=== PATIENT | male | born 1970 | race African-American/Black ===

== ENCOUNTER 2020-04-01 10:22 | Inpatient (IN) | payer OTHER ==
[2020-04-01 12:35] VITALS: BMI 22.8
--- NOTE | 2020-04-01 12:39 | BHS.RME ---
Substance Use & Tx History - Substance Use History Alcohol Substance amount: 2 6 packs, 1 pint Frequency of use: Daily Substance route: Oral Date of Last Use: 03/31/20 Cocaine-Crack Substance amount: 2 grams Frequency of use: Daily Substance route: Smoking Date of Last Use: 03/31/20 - Last Treatment Date of last treatment: 1st time Physical/Psych/Mental Status - Behavior General Behavior: Increased activity (restlessness, agitation) Eye Contact: Normal Other Behaviors: Mannerisms - Cooperativeness Cooperativeness: Cooperative - Thinking Thought Processes: Tight - Physical Health Problems Is patient presently having any pain?: No Does patient presently have any injuries (include location): No Does patient currently have a fever: No CIWA Nausea/Vomitin Muscle Tremors: 2 Anxiety: 2 Agitation: 2 Paroxysmal Sweats: 2 Orientation: 0-Oriented Tacttile Disturbances: 1-Very Mild Itch/Numbness Auditory Disturbances: 1-Very Mild Visual Disturbances: 1-Very Mild Sensitivity Headache: 1-Very Mild CIWA-Ar Total Score: 14
--- NOTE | 2020-04-01 12:58 | HP ---
CIWA Score Nausea/Vomitin Muscle Tremors: 2 Anxiety: 2 Agitation: 2 Paroxysmal Sweats: 2 Orientation: 0-Oriented Tacttile Disturbances: 1-Very Mild Itch/Numbness Auditory Disturbances: 1-Very Mild Visual Disturbances: 1-Very Mild Sensitivity Headache: 1-Very Mild CIWA-Ar Total Score: 14 - Admission Criteria [facility]ASAS Guidelines: Admission for Medically Managed Detox: Requires at least one of the followin. CIWA greater than 12 2. Seizures within the past 24 hours 3. Delirium tremens within the past 24 hours 4. Hallucinations within the past 24 hours 5. Acute intervention needed for co occurring medical disorder 6. Acute intervention needed for co occurring psychiatric disorder 7. Severe withdrawal that cannot be handled at a lower level of care (continued vomiting, continued diarrhea, abnormal vital signs) requiring intravenous medication and/or fluids 8. Patient presents the following: CIWA greater than 12 Admission Criteria Met: Admission criteria met Admission ROS [facility] Chief Complaint: I am here to detox from alcohol Allergies/Adverse Reactions: Allergies Allergy/AdvReac Type Severity Reaction Status Date / Time No Known Allergies Allergy Verified 04/01/20 12:46 History of Present Illness: Patient is a 49 years old man who presents for alcohol detox, his first time in detox. He denies seizures or blackouts. Exam Limitations: No Limitations - Ebola screening Have you traveled outside of the country in the last 21 days: No Have you had contact with anyone from an Ebola affected area: No Have you been sick,other than usual withdrawal symptoms: No Do you have a fever: No - Review of Systems Constitutional: Chills, Changes in sleep, Weight Stable EENT: reports: No Symptoms Reported, Other (partial dentures) Respiratory: reports: No Symptoms reported Cardiac: reports: No Symptoms Reported GI: reports: Nausea, Abdominal cramping : reports: No Symptoms Reported Musculoskeletal: reports: Muscle Pain, Muscle Weakness Integumentary: reports: No Symptoms Reported Neuro: reports: Headache, Numbness, Tremors Endocrine: reports: No Symptoms Reported Hematology: reports: Anemia Psychiatric: reports: No Sypmtoms Reported Other Systems: Reviewed and Negative Patient History - Patient Medical History Hx Anemia: Yes Hx Asthma: No Hx Chronic Obstructive Pulmonary Disease (COPD): No Hx Cancer: No Hx Cardiac Disorders: No Hx Congestive Heart Failure: No Hx Hypertension: No Hx Hypercholesterolemia: No Hx Pacemaker: No HX Cerebrovascular Accident: No Hx Seizures: No Hx Dementia: No Hx Diabetes: No Hx Gastrointestinal Disorders: No Hx Liver Disease: No Hx Genitourinary Disorders: No Hx Sexually Transmitted Disorders: No Hx Renal Disease (ESRD): No Hx Thyroid Disease: No Hx Human Immunodeficiency Virus (HIV): No Hx Hepatitis C: No Hx Depression: No Hx Suicide Attempt: No Hx Bipolar Disorder: No Hx Schizophrenia: No - Patient Surgical History Hx Neurologic Surgery: No Hx Cataract Extraction: No Hx Cardiac Surgery: No Hx Lung Surgery: No Hx Breast Surgery: No Hx Breast Biopsy: No Hx Abdominal Surgery: Yes (hernia repair as a child) Hx Appendectomy: No Hx Cholecystectomy: No Hx Genitourinary Surgery: No Hx Section: No Hx Orthopedic Surgery: No Hx Hysterectomy: No Anesthesia Reaction: No - PPD History Previous Implant?: Yes Documented Results: Negative w/o proof Implanted On Prior R Admission?: No PPD to be Administered?: Yes - Smoking Cessation Smoking history: Current every day smoker Have you smoked in the past 12 months: Yes Aproximately how many cigarettes per day: 20 Hx Chewing Tobacco Use: No Initiated information on smoking cessation: Yes 'Breaking Loose' booklet given: 04/01/20 - Substances abused Alcohol Other (specify): beer and vodka Amount used: 2-6 packs,1 pint Age of first use: 14 Date of last use: 03/31/20 Cocaine Substance route: Smoking Frequency: Daily Amount used: 2 grams Age of first use: 21 Date of last use: 03/31/20 Admission Physical Exam BHS - Vital Signs Vital Signs: Vital Signs - 24 hr 04/01/20 12:33 Temperature 97.6 F Pulse Rate 71 Respiratory 18 Rate Blood Pressure 143/89 - Physical General Appearance: Yes: No Apparent Distress, Tremorous, Anxious HEENTM: Yes: Hearing grossly Normal, Normal ENT Inspection, Normocephalic, Normal Voice Respiratory: Yes: Chest Non-Tender, Lungs Clear, No Respiratory Distress, No Accessory Muscle Use Neck: Yes: No masses,lesions,Nodules, Supple Breast: Yes: Breast Exam Deferred Cardiology: Yes: Regular Rhythm, Regular Rate, S1, S2 Abdominal: Yes: Normal Bowel Sounds, Non Tender Genitourinary: Yes: Within Normal Limits Back: Yes: Normal Inspection Musculoskeletal: Yes: full range of Motion, Gait Steady, Pelvis Stable, Muscle Pain, Muscle weakness Extremities: Yes: Normal Range of Motion, Non-Tender, Tremors 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, Fully Oriented, Alert, Normal Mood/Affect, Normal Response Integumentary: Yes: Normal Color, Dry, Moist (palms) Lymphatic: Yes: Within Normal Limits - Diagnostic (1) Alcohol dependence with uncomplicated withdrawal Current Visit: Yes Status: Acute (2) Nicotine dependence with withdrawal Current Visit: Yes Status: Acute Qualifiers: Nicotine product type: cigarettes Qualified Code(s): F17.213 - Nicotine dependence, cigarettes, with withdrawal (3) Cocaine abuse Current Visit: Yes Status: Acute Cleared for Admission S - Detox or Rehab [facility] Level of Care: Medically Managed Detox Regimen/Protocol: Librium Claeared for Rehab Admission: No Breathalyzer - Breathalyzer Breathalyzer: 0 Urine Drug Screen - Test Device Lot number: [id number] Expiration date: 10/05/76 - Control Is test valid?: Yes - Results Drug screen NEGATIVE: No Urine drug screen results: [facility]OLAN-Cocaine Inpatient Rehab Admission - Rehab Decision to Admit Inpatient rehab admission?: No
[2020-04-01] MEDS ORDERED: MAGNESIUM CITRATE 300 ML BOTTLE PO PRN (13:04)
[2020-04-01] MEDS ORDERED: hydrOXYzine PAMOATE 25 MG CAPSULE (FP) PO PRN (13:04)
[2020-04-01] MEDS ORDERED: ACETAMINOPHEN 325 MG TABLET (FP) PO PRN ×2 (13:04)
[2020-04-01] MEDS ORDERED: ONDANSETRON *ODT* 4 MG TABLET SL PRN (13:04)
[2020-04-01] MEDS ORDERED: BISMUTH SUBSALICYLATE 524 MG/30 ML UD PO PRN (13:04)
[2020-04-01] MEDS ORDERED: IBUPROFEN 400 MG TABLET (FP) PO PRN (13:04)
[2020-04-01] MEDS ORDERED: MENTHOL/PHENOL 1 EACH UD MM PRN (13:04)
[2020-04-01] MEDS ORDERED: MAGNESIUM HYDROX 2400MG/30ML ORAL SUSPENSION 30 ML CUP PO PRN (13:04)
[2020-04-01] MEDS ORDERED: MAG HYDROX/AL HYDROX/SIMETH 30 ML UNIT-DOSE CUP PO PRN (13:04)
[2020-04-01] MEDS ORDERED: chlordiazePOXIDE HCL 25 MG CAPSULE PO PRN (13:04)
[2020-04-01] MEDS ORDERED: METHOCARBAMOL 500 MG TABLET PO PRN (13:04)
[2020-04-01] MEDS ORDERED: NICOTINE POLACRILEX 2 MG GUM BUC PRN (13:04)
[2020-04-01] MEDS ORDERED: chlordiazePOXIDE HCL 25 MG CAPSULE PO ONE (13:45)
[2020-04-01] MEDS: chlordiazePOXIDE HCL 25 MG CAPSULE PO SCH ×2 (17:46→22:23)
[2020-04-01] MEDS: THIAMINE HCL 100 MG TABLET (FP) PO SCH (22:23)
[2020-04-01] MEDS: MELATONIN 5 MG TABLETS PO SCH (22:23)
[2020-04-02] MEDS: chlordiazePOXIDE HCL 25 MG CAPSULE PO SCH ×4 (05:16→22:26)
[2020-04-02] MEDS ORDERED: chlordiazePOXIDE HCL 25 MG CAPSULE ONE (09:35)
--- NOTE | 2020-04-02 10:42 | PN ---
S CIWA - CIWA Score Nausea/Vomitin-Mild Nausea/No Vomiting Muscle Tremors: 1-None Visible, but [place] Anxiety: 3 Agitation: 1-Slight > Activity Paroxysmal Sweats: No Perspiration Orientation: 1-Uncertain about Date (date of week) Tacttile Disturbances: 0-None Auditory Disturbances: 0-None Visual Disturbances: 1-Very Mild Sensitivity Headache: 1-Very Mild CIWA-Ar Total Score: 9 BHS Progress Note (SOAP) Subjective: 49 years old male was admitted on 04/01/20 for alcohol withdrawal sx management treating with librium detox regiment feels tired ate breakfast in room tolerated food well bmi 22.8 ensure 120 ml po tid with meals Objective: 04/02/20 10:42 Vital Signs - 24 hr 04/01/20 04/01/20 04/01/20 12:33 13:31 16:35 Temperature 97.6 F 96.8 F L 97.8 F Pulse Rate 71 74 74 Respiratory 18 18 16 Rate Blood Pressure 143/89 133/88 121/77 O2 Sat by Pulse 99 Oximetry (%) 04/01/20 04/02/20 04/02/20 21:00 06:33 09:50 Temperature 97.3 F L 97.1 F L 97 F L Pulse Rate 76 65 68 Respiratory 18 18 16 Rate Blood Pressure 115/71 135/85 129/90 O2 Sat by Pulse 99 97 Oximetry (%) 04/02/20 10:43 lab pending Assessment: 04/02/20 10:44 alcohol withdrawal Plan: librium regiment
[2020-04-02 10:49] LABS: HEMATOCRIT 43.4 % (35.4-49); HEMOGLOBIN 14.6 GM/dL (11.7-16.9); MCHC 33.6 g/dl (32.0-35.9); MEAN PLT VOLUME 9.6 fl (7.5-11.1); PLATELET COUNT 234 K/MM3 (134-434); RBC 4.57 M/mm3 (4.00-5.60); RDW 14.4 % (11.9-15.9); WHITE BLOOD COUNT 6.3 K/mm3 (4.0-10.0)
[2020-04-02 11:06] LABS: ALBUMIN 2.9 g/dl (3.4-5.0); BILIRUBIN,TOTAL 0.4 mg/dL (0.2-1); BLOOD UREA NITROGEN 9.5 mg/dL (7-18); CALCIUM 8.5 mg/dL (8.5-10.1); CREATININE 0.9 mg/dL (0.55-1.3); POTASSIUM 3.5 mmol/L (3.5-5.1)
[2020-04-02 11:07] LABS: TOT PROT 6.2 g/dl (6.4-8.2)
[2020-04-02] MEDS: NICOTINE 7 MG/24 HOURS TOPICAL PATCH TD SCH (11:53)
[2020-04-02] MEDS: PRENATAL VITAMINS W/ FOLIC ACID TABLET (FP) PO SCH (11:53)
[2020-04-02] MEDS: MELATONIN 5 MG TABLETS PO SCH (22:26)
[2020-04-02] MEDS: THIAMINE HCL 100 MG TABLET (FP) PO SCH (22:26)
[2020-04-03] MEDS: chlordiazePOXIDE HCL 25 MG CAPSULE PO SCH ×4 (05:30→23:48)
[2020-04-03] MEDS: PRENATAL VITAMINS W/ FOLIC ACID TABLET (FP) PO SCH (10:13)
[2020-04-03] MEDS: NICOTINE 7 MG/24 HOURS TOPICAL PATCH TD SCH (10:15)
--- NOTE | 2020-04-03 12:32 | PN ---
S CIWA - CIWA Score Nausea/Vomitin-Mild Nausea/No Vomiting Muscle Tremors: 2 Anxiety: 3 Agitation: 0-Normal Activity Paroxysmal Sweats: No Perspiration Orientation: 0-Oriented Tacttile Disturbances: 0-None Auditory Disturbances: 0-None Visual Disturbances: 0-None Headache: 0-None Present CIWA-Ar Total Score: 6 BHS Progress Note (SOAP) Subjective: 49 years old male was admitted on 04/01/20 for alcohol withdrawal sx management treating with libriium detox regiment tolerates food and ensure well encourage mr garcia to discuss aftercare with staff Objective: 04/03/20 12:36 Vital Signs - 24 hr 04/02/20 04/02/20 04/02/20 13:00 17:20 21:00 Temperature 97.3 F L 99.3 F 97.3 F L Pulse Rate 70 82 77 Respiratory 18 18 16 Rate Blood Pressure 129/76 125/79 133/90 O2 Sat by Pulse 98 98 99 Oximetry (%) 04/03/20 04/03/20 06:41 08:41 Temperature 97.2 F L 97.3 F L Pulse Rate 78 71 Respiratory 18 16 Rate Blood Pressure 133/78 136/93 O2 Sat by Pulse 98 Oximetry (%) 04/03/20 12:37 Laboratory Tests 04/01/20 04/02/20 04/02/20 13:08 07:50 07:50 WBC 6.3 RBC 4.57 Hgb 14.6 Hct 43.4 MCV 95.0 MCH 32.0 MCHC 33.6 RDW 14.4 Plt Count 234 MPV 9.6 Sodium Potassium Chloride Carbon Dioxide Anion Gap BUN Creatinine Est GFR (CKD-EPI)AfAm Est GFR (CKD-EPI)NonAf Random Glucose Calcium Total Bilirubin AST ALT Alkaline Phosphatase Total Protein Albumin Syphilis Serology Non-reactive COVID-19 (ANA) Not detected 04/02/20 07:50 WBC RBC Hgb Hct MCV MCH MCHC RDW Plt Count MPV Sodium 141 Potassium 3.5 Chloride 106 Carbon Dioxide 31 Anion Gap 4 L BUN 9.5 Creatinine 0.9 Est GFR (CKD-EPI)AfAm 116.65 Est GFR (CKD-EPI)NonAf 100.64 Random Glucose 72 L Calcium 8.5 Total Bilirubin 0.4 AST 18 ALT 17 Alkaline Phosphatase 90 Total Protein 6.2 L Albumin 2.9 L Syphilis Serology COVID-19 (ANA) lab noted Assessment: 04/03/20 12:38 alcohol withdrawal Plan: librium regiment
[2020-04-03] MEDS: MELATONIN 5 MG TABLETS PO SCH (23:48)
[2020-04-03] MEDS: THIAMINE HCL 100 MG TABLET (FP) PO SCH (23:48)
[2020-04-04] MEDS ORDERED: chlordiazePOXIDE HCL 10 MG CAPSULE PO PRN
[2020-04-04] MEDS: chlordiazePOXIDE HCL 10 MG CAPSULE PO SCH ×2 (05:44→10:32)
--- NOTE | 2020-04-04 08:57 | DS ---
[facility] Detox Discharge Summary Admission Date: 04/01/20 Discharge Date: 04/04/20 - History Present History: Alcohol Dependence Additional Comments: 49 years old male was admitted on 04/01/20 for alcohol withdrawal sx management treated with librium detox regiment mr garcia reports feeling better today insists to leave the detox today alert oriented x 3 speech clearly coherently ambulating steady gait mr garcia prefers to go home and takes care of his alcohol problem in the community by attending AA and seeks support General Appearance: Yes: No Apparent Distress, mild Tremorous, mild Anxious HEENTM: Yes: Hearing grossly Normal, Normal ENT Inspection, Normocephalic, Normal Voice Respiratory: Yes: Chest Non-Tender, Lungs Clear, No Respiratory Distress, No Accessory Muscle Use Neck: Yes: No masses,lesions,Nodules, Supple Breast: Yes: Breast Exam Deferred Cardiology: Yes: Regular Rhythm, Regular Rate, S1, S2 Abdominal: Yes: Normal Bowel Sounds, Non Tender Genitourinary: Yes: Within Normal Limits Back: Yes: Normal Inspection Musculoskeletal: Yes: full range of Motion, Gait Steady, Pelvis Stable, Muscle Pain, Muscle weakness Extremities: Yes: Normal Range of Motion, Non-Tender, Tremors 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, Fully Oriented, Alert, Normal Mood/Affect, Normal Response Integumentary: Yes: Normal Color, Dry, Lymphatic: Yes: Within Normal Limits Pertinent Past History: time for discharge 57 minutes treatment team met with mr garcia to discuss the benefits of librium completion mr garcia insists to leave the detox and prefers taking care of his alcohol problem himself - Physical Exam Results Vital Signs: Vital Signs Temperature 97.5 F L 04/04/20 06:43 Pulse Rate 90 04/04/20 06:43 Respiratory Rate 18 04/04/20 06:43 Blood Pressure 134/89 04/04/20 06:43 O2 Sat by Pulse Oximetry (%) 98 04/04/20 06:43 Pertinent Admission Physical Exam Findings: alcohol withdrawal Vital Signs - 24 hr 04/03/20 04/03/20 04/03/20 12:56 16:35 20:42 Temperature 97.7 F 97.3 F L 97.5 F L Pulse Rate 66 73 76 Respiratory 16 18 17 Rate Blood Pressure 117/75 106/67 108/64 O2 Sat by Pulse 99 98 Oximetry (%) 04/04/20 04/04/20 06:43 09:22 Temperature 97.5 F L 97.3 F L Pulse Rate 90 100 H Respiratory 18 18 Rate Blood Pressure 134/89 126/95 O2 Sat by Pulse 98 98 Oximetry (%) Laboratory Tests 04/01/20 04/02/20 04/02/20 13:08 07:50 07:50 WBC 6.3 RBC 4.57 Hgb 14.6 Hct 43.4 MCV 95.0 MCH 32.0 MCHC 33.6 RDW 14.4 Plt Count 234 MPV 9.6 Sodium Potassium Chloride Carbon Dioxide Anion Gap BUN Creatinine Est GFR (CKD-EPI)AfAm Est GFR (CKD-EPI)NonAf Random Glucose Calcium Total Bilirubin AST ALT Alkaline Phosphatase Total Protein Albumin Syphilis Serology Non-reactive COVID-19 (ANA) Not detected 04/02/20 07:50 WBC RBC Hgb Hct MCV MCH MCHC RDW Plt Count MPV Sodium 141 Potassium 3.5 Chloride 106 Carbon Dioxide 31 Anion Gap 4 L BUN 9.5 Creatinine 0.9 Est GFR (CKD-EPI)AfAm 116.65 Est GFR (CKD-EPI)NonAf 100.64 Random Glucose 72 L Calcium 8.5 Total Bilirubin 0.4 AST 18 ALT 17 Alkaline Phosphatase 90 Total Protein 6.2 L Albumin 2.9 L Syphilis Serology COVID-19 (ANA) lab noted - Treatment Hospital Course: Detox Protocol Followed, Detoxed Safely, Responded well, Discharged Condition Good, Rehab Referral Accepted Patient has Accepted a Rehab Referral to: community support AA - Medication Discharge Medications: Ambulatory Orders NK [No Known Home Medication] 04/01/20 - Diagnosis (1) Substance induced mood disorder Current Visit: Yes Status: Suspected (2) Alcohol dependence with uncomplicated withdrawal Current Visit: Yes Status: Acute (3) Nicotine dependence with withdrawal Current Visit: Yes Status: Acute Qualifiers: Nicotine product type: cigarettes Qualified Code(s): F17.213 - Nicotine dependence, cigarettes, with withdrawal - AMA Did Patient Leave Against Medical Advice: No CIWA Score - CIWA Score Nausea/Vomitin-No Nausea/No Vomiting Muscle Tremors: 1-None Visible, but [place] Anxiety: 2 Agitation: 0-Normal Activity Paroxysmal Sweats: No Perspiration Orientation: 0-Oriented Tacttile Disturbances: 0-None Auditory Disturbances: 0-None Visual Disturbances: 0-None Headache: 0-None Present CIWA-Ar Total Score: 3
[2020-04-04 09:23] VITALS: BP 126/95; PULSE 100; TEMP 97.3
[2020-04-04] MEDS: NICOTINE 7 MG/24 HOURS TOPICAL PATCH TD SCH (10:31)
[2020-04-04] MEDS: PRENATAL VITAMINS W/ FOLIC ACID TABLET (FP) PO SCH (10:31)
[2020-04-05] MEDS ORDERED: chlordiazePOXIDE HCL 10 MG CAPSULE PO SCH (05:00)
[2020-04-06] MEDS ORDERED: chlordiazePOXIDE HCL 10 MG CAPSULE PO ONE (05:00)
== END 2020-04-04 09:33 | disposition home or self-care (01) | DRG 774 ==
LOC: YASAS 10:22 → Y3N 13:05
PROVIDERS: ADMIT Allergy & Immunology; ATTEND Allergy & Immunology
PROC: HZ2ZZZZ Detoxification Services for Substance Abuse Treatment (ICD-10-PCS; principal; 2020-04-01)
DX: F10.230 Alcohol dependence with withdrawal, uncomplicated (principal); F14.20 Cocaine dependence, uncomplicated; F17.213 Nicotine dependence, cigarettes, with withdrawal; F19.24 Other psychoactive substance dependence with psychoactive substance-induced mood disorder; Z86.2 Personal history of diseases of the blood and blood-forming organs and certain disorders involving the immune mechanism; Z59.0 Homelessness
CPT/HCPCS: 36415; 80053; 85027; 86780; U0003